=== PATIENT | male | born 1955 | race African-American/Black ===

== ENCOUNTER 2016-12-14 01:38 | Emergency (ER) | payer OTHER ==
[~2016-12-14] VITALS: Ht 188 cm; Wt 105.0 kg
[~2016-12-14 01:38] MED LIST: ALEV220C; CYCL-36 PO; IBUP800T23 PO; RANI150T PO; VENTAER INH
[2016-12-14 01:39] VITALS: BP 134/70; PULSE 82; RESP 18; TEMP 97.8; O2SAT 97
[2016-12-14] MEDS ORDERED: IBUP800T23 PO (02:19)
[2016-12-14] MEDS ORDERED: METO25TA3 PO (02:22)
[2016-12-14] MEDS ORDERED: SYMB160A INH (02:22)
--- NOTE | 2016-12-14 02:22 | PD ---
HPI Chief Complaint: Injury Time Seen by Provider: 02:19 Travel History International Travel<30 days: No Contact w/Intl Traveler<30days: No Traveled to known affect area: No History of Present Illness HPI 61-year-old male presents emergency department for complaints of blisters on his feet. He states that he is homeless. He is unsure whether this had come from his shoes. He states that he is unsure whether this had been from insect bites. He denies any fever chills. No drainage. Pain is mild. PFSH Past Medical History Narrative Medical COPD, vertebral body fracture, chronic back pain, homelessness Tetanus Vaccination: < 5 Years Past Surgical History Surgical History: No Previous Surgery Social History Alcohol Use: Yes Tobacco Use: Yes Allergies-Medications (Allergen,Severity, Reaction): Coded Allergies: No Known Allergies (Unverified , 12/14/16) Reported Meds & Prescriptions Reported Meds & Active Scripts Active Ranitidine 150 mg (Ranitidine HCl) 150 Mg Tab 1 Tab PO BID Ventolin Hfa (Albuterol Sulfate) 18 Gm Aero 1 Puff INH Q6 * SHAKE WELL BEFORE USE * Flexeril (Cyclobenzaprine HCl) 10 Mg Tab 10 Mg PO TID Ibuprofen 800 Mg Tab 800 Mg PO TID PRN Reported Aleve (Naproxen Sodium) 220 Mg Cap HS Review of Systems Except as stated in HPI: all other systems reviewed are Neg Physical Exam Narrative GENERAL: This is a well-nourished, well-developed patient, in no apparent distress. SKIN: No rashes, ecchymoses or lesions. Warm and dry. HEAD: Atraumatic. Normocephalic. EYES: PERRL, EOMI, no discharge or injection. No scleral icterus. EARS: Clear NOSE: Nasal turbinates appear normal. THROAT: Mucosa pink and moist. Airway patent. NECK: Trachea midline. supple, moves head freely. LUNGS: Clear to auscultation. CV: Regular in rhythm. ABDOMEN: Soft nontender. EXT: No clubbing cyanosis or edema. Patient has intact blisters to the toes of the left and right foot. There are no signs of any wound infections. There is no erythema or edema. No drainage. Data Data Last Documented VS Vital Signs Date Time Temp Pulse Resp B/P Pulse Ox O2 Delivery O2 Flow Rate FiO2 12/14/16 01:39 97.8 82 18 134/70 97 Room Air Orders Ibuprofen (Motrin) (12/14/16 02:30) MDM Medical Decision Making Medical Screen Exam Complete: Yes Emergency Medical Condition: Yes (clinical) Medical Record Reviewed: Yes Differential Diagnosis MDM: High Differential diagnoses: Abscess, folliculitis, cellulitis, lymphangitis, abrasion, contact dermatitis, friction blisters Narrative Course These appear to be friction blisters Patient's given Motrin 800 mg by mouth. He is given hospital socks. Diagnosis Primary Impression: Friction blister Patient Instructions: General Instructions Additional Instructions: Rest. Elevation. keep clean and dry. Daily wound care with soap and water. Keep your feet dry and wear socks. Motrin. Follow-up with a primary care doctor in one week. Return to the ER for any problems. Med/Other Pt SpecificInfo: Prescription(s) given Scripts Ibuprofen 800 Mg [id number] Mg PO Q8H PRN (Pain/Inflammation) #30 TAB Prov:Cecelia Tran MD 12/14/16 Disposition: 01 DISCHARGE HOME Condition: Stable Bird Plunkett Dec 14, 2016 02:22
[2016-12-14] MEDS ORDERED: IBUPROFEN 800 MG TAB PO ONE (02:30)
== END 2016-12-14 02:32 | disposition home or self-care (01) ==
LOC: NEPD 01:38
DX: S90.424A Blister (nonthermal), right lesser toe(s), initial encounter (principal); S90.425A Blister (nonthermal), left lesser toe(s), initial encounter; X58.XXXA Exposure to other specified factors, initial encounter; Z59.0 Homelessness
CPT/HCPCS: 99283

== ENCOUNTER 2016-12-14 02:33 | Emergency (ER) | payer OTHER ==
[~2016-12-14] VITALS: Ht 182.9 cm; Wt 85.0 kg
[~2016-12-14 02:33] MED LIST changes: +METO25TA3 PO; +SYMB160A INH
[2016-12-14 02:34] VITALS: BP 135/74; PULSE 63; RESP 16; TEMP 97.9; O2SAT 99
[2016-12-14] MEDS ORDERED: SODIUM CHLORIDE 0.9% FLUSH 10 ML FLUSH IVF PRN (05:00)
[2016-12-14 05:23] LABS: AUTOMATED NEUTROPHIL # 8.1 TH/MM3 (1.8-7.7); BASOPHIL # 0.1 TH/MM3 (0-0.2); BASOPHIL % 0.6 % (0.0-2.0); EOSINOPHIL # 0.3 TH/MM3 (0-0.4); EOSINOPHIL % 2.3 % (0.0-4.0); HEMATOCRIT 43.8 % (39.0-51.0); HEMO FLAGS DIFF FINAL; LYMPH % 15.7 % (9.0-44.0); LYMPHOCYTE # 1.8 TH/MM3 (1.0-4.8); MEAN CELL VOLUME 90.4 FL (80.0-100.0); MEAN CORPUSCULAR HEMOGLOBIN 29.7 PG (27.0-34.0); MEAN CORPUSCULAR HGB CONC 32.8 % (32.0-36.0); MONO % 10.5 % (0.0-8.0); NEUT % 70.9 % (16.0-70.0); PLATELET COUNT 185 TH/MM3 (150-450); RED BLOOD COUNT 4.85 MIL/MM3 (4.50-5.90); RED CELL DISTRIBUTION WIDTH 13.4 % (11.6-17.2); WHITE BLOOD COUNT 11.4 TH/MM3 (4.0-11.0)
--- NOTE | 2016-12-14 05:47 | RADRPT ---
EXAM DATE/TIME: 12/14/2016 05:06 [facility] COMPARISON: No previous studies available for comparison. INDICATIONS : Chest pain. MEDICAL HISTORY : Chronic obstructive pulmonary disease. SURGICAL HISTORY : None. ENCOUNTER: Initial ACUITY: 1 day PAIN SCORE: 7/10 LOCATION: Bilateral chest FINDINGS: A single view of the chest demonstrates the lungs to be symmetrically aerated without evidence of mas s, infiltrate or effusion. The cardiomediastinal contours are unremarkable. Osseous structures are intact. Prominent first costocartilage junctions are again noted. CONCLUSION: Normal examination. Bryon Rider MD on December 14, 2016 at 5:45 Board Certified Radiologist. This report was verified electronically.
[2016-12-14 05:49] LABS: ANION GAP 2 MEQ/L (5-15); BICARBONATE 31.5 MEQ/L (21.0-32.0); BLOOD UREA NITROGEN 15 MG/DL (7-18); CHLORIDE 108 MEQ/L (98-107); GLOMERULAR FILTRATION RATE 82 ML/MIN (>89); SODIUM (NA) 141 MEQ/L (136-145)
[2016-12-14 05:51] LABS: CREATINE KINASE 292 U/L (39-308)
[2016-12-14 06:04] LABS: CKMB 3.6 NG/ML (0.5-3.6)
--- NOTE | 2016-12-14 06:42 | PD ---
HPI Chief Complaint: Chest Pain Time Seen by Provider: 04:48 Travel History International Travel<30 days: No Contact w/Intl Traveler<30days: No Traveled to known affect area: No History of Present Illness HPI This is a 61-year-old male who presents with complaints of chest pain. The patient was seen earlier in the [facility] area for blistering of his feet after walking a long distance. At that time he was discharged with a prescription for morphine and he was not happy with this. He returned back and instead he was now having chest pain. When asked about his chest pain. He states she's been having it for 1-2 days. He reports that he has palpitations. He states he had it once before and was told he had an irregular heartbeat. He states at that time they sent him home with a Holter monitor. He denies any nausea, diaphoresis. The patient is asking for food as well. [facility] Social History Alcohol Use: Yes Tobacco Use: Yes Substance Use: No Allergies-Medications (Allergen,Severity, Reaction): Coded Allergies: No Known Allergies (Unverified , 12/14/16) Reported Meds & Prescriptions Reported Meds & Active Scripts Active Ibuprofen 800 Mg Tab 800 Mg PO Q8H PRN Reported Metoprolol Tartrate 25 Mg Tab 25 Mg PO DAILY Symbicort Inh (Budesonide/Formoterol Fumarate) 160-4.5 Mcg/Act Aero 2 Puff INH Q12HR Review of Systems Except as stated in HPI: all other systems reviewed are Neg General / Constitutional: No: Fever, Chills HENT: No: Headaches, Lightheadedness Cardiovascular: Positive: Chest Pain or Discomfort (left sided he cannot quantitate the pain. He states it comes and goes and), Palpitations ( he has palpitations) Respiratory: No: Cough, Shortness of Breath Gastrointestinal: No: Nausea, Vomiting, Abdominal Pain Musculoskeletal: Positive: Pain (pain in his feet where he has blistering from walking.), No: Myalgias, Weakness Neurologic: No: Weakness, Dizziness, Headache, Change in Mentation Physical Exam Narrative GENERAL: Well-nourished, well-developed patient in no acute respiratory distress.. SKIN: Focused skin assessment warm/dry. HEAD: Normocephalic last atraumatic. EYES: No scleral icterus. No injection or drainage. NECK: Supple, trachea midline. CARDIOVASCULAR: Regular rate and rhythm without murmurs, gallops, or rubs. RESPIRATORY: Breath sounds equal bilaterally. No accessory muscle use. GASTROINTESTINAL: Abdomen soft, non-tender, nondistended. MUSCULOSKELETAL: No cyanosis, or edema. NEUROLOGICAL: Awake and alert. Cranial nerves II through XII intact. Motor grossly within normal limits. Five out of 5 muscle strength in all muscle groups. Normal speech. Data Data Last Documented VS Vital Signs Date Time Temp Pulse Resp B/P Pulse Ox O2 Delivery O2 Flow Rate FiO2 12/14/16 02:34 97.9 63 16 135/74 99 Room Air Orders Electrocardiogram (12/14/16 04:48) Basic Metabolic Panel (Bmp) (12/14/16 04:48) Ckmb (Isoenzyme) Profile (12/14/16 04:48) Complete Blood Count With Diff (12/14/16 04:48) Troponin I (12/14/16 04:48) Chest, Single Ap (12/14/16 04:48) Ecg Monitoring (12/14/16 04:48) Iv Access Insert/Monitor (12/14/16 04:48) Oximetry (12/14/16 04:48) Sodium Chloride 0.9% Flush (Ns Flush) (12/14/16 05:00) CKMB (12/14/16 05:05) CKMB% (12/14/16 05:05) Labs Laboratory Tests Test 12/14/16 05:05 White Blood Count 11.4 TH/MM3 Red Blood Count 4.85 MIL/MM3 Hemoglobin 14.4 GM/DL Hematocrit 43.8 % Mean Corpuscular Volume 90.4 FL Mean Corpuscular Hemoglobin 29.7 PG Mean Corpuscular Hemoglobin 32.8 % Concent Red Cell Distribution Width 13.4 % Platelet Count 185 TH/MM3 Mean Platelet Volume 10.0 FL Neutrophils (%) (Auto) 70.9 % Lymphocytes (%) (Auto) 15.7 % Monocytes (%) (Auto) 10.5 % Eosinophils (%) (Auto) 2.3 % Basophils (%) (Auto) 0.6 % Neutrophils # (Auto) 8.1 TH/MM3 Lymphocytes # (Auto) 1.8 TH/MM3 Monocytes # (Auto) 1.2 TH/MM3 Eosinophils # (Auto) 0.3 TH/MM3 Basophils # (Auto) 0.1 TH/MM3 CBC Comment DIFF FINAL Differential Comment Sodium Level 141 MEQ/L Potassium Level 4.0 MEQ/L Chloride Level 108 MEQ/L Carbon Dioxide Level 31.5 MEQ/L Anion Gap 2 MEQ/L Blood Urea Nitrogen 15 MG/DL Creatinine 1.11 MG/DL Estimat Glomerular Filtration 82 ML/MIN Rate Random Glucose 92 MG/DL Calcium Level 8.9 MG/DL Total Creatine Kinase 292 U/L Creatine Kinase MB 3.6 NG/ML Troponin I LESS THAN 0.02 NG/ML MDM Medical Decision Making Medical Screen Exam Complete: Yes Emergency Medical Condition: Yes Differential Diagnosis A typical chest pain versus malingering versus ACS Narrative Course 61-year-old male who presents here after being discharged from [facility] track because he was not happy with this workup and diagnosis, who presents here with chest pain. The patient is asking for a meal. The patient is homeless and has a poor social situation. He states he walked here from [facility] last night. The patient's EKG shows no evidence of acute ST elevation or depression. Cardiac enzymes are within normal limits. The patient will be discharged. Diagnosis Primary Impression: Atypical chest pain Additional Impression: Friction blister of the foot Disposition: 01 DISCHARGE HOME Condition: Stable Aidan Carter MD Dec 14, 2016 06:42
--- NOTE | 2016-12-14 13:21 | EKG ---
Date Performed: 12/14/2016 Time Performed: 04:57:33 PTAGE: 61 years EKG: SINUS BRADYCARDIA POSSIBLE LEFT ATRIAL ENLARGEMENT BORDERLINE ECG NO PREVIOUS TRACING DOCTOR: Marlene Gant Interpretating Date/Time 12/14/2016 13:18:28
== END 2016-12-14 09:24 | disposition home or self-care (01) ==
LOC: NEPE 02:33
DX: R07.89 Other chest pain (principal)
CPT/HCPCS: 71010; 80048; 82550; 82552; 84484; 85025; 93005; 99285